=== PATIENT | female | born 1990 | race American Indian/Alaskan Native ===

== ENCOUNTER 2016-09-10 14:27 | Emergency (ER) | payer SELFPAY ==
[2016-09-10 15:24] LABS: Basophils % (Auto) 1.1 % (0.0-1.8); Eosinophils % (Auto) 0.7 % (0.0-4.3); Hematocrit 38.1 % (30.3-42.9); Hemoglobin 12.7 gm/dl (10.1-14.3); Mean Corpuscular HGB Conc 33 % (30-34); Mean Corpuscular Hemoglobin 32 pg (28-32); Mean Corpuscular Volume 96 fl (79-97); Platelet Count 249 K/mm3 (140-440); Red Blood Count 3.98 M/mm3 (3.65-5.03); Red Cell Distribution Width 12.6 % (13.2-15.2); White Blood Count 5.3 K/mm3 (4.5-11.0)
[2016-09-10 15:27] LABS: Bilirubin,Urine NEG (Negative); Blood,Urine NEG (Negative); Ketones,Urine TR mg/dL (Negative); Leukocyte Esterase,Urine SM (Negative); Mucus,Urine 2+ /HPF; Nitrite,Urine NEG (Negative); Protein,Urine <15 mg/dL mg/dL (Negative)
[2016-09-10 15:40] LABS: Alanine Aminotransferase 7 units/L (7-56); Albumin 4.3 g/dL (3.9-5); Albumin/Globulin Ratio 1.5 %; Alkaline Phosphatase 41 units/L (35-129); Bilirubin,Total 0.9 mg/dL (0.1-1.2); Blood Urea Nitrogen 7 mg/dL (7-17); Calcium 9.3 mg/dL (8.4-10.2); Carbon Dioxide 26 mmol/L (22-30); Glucose 88 mg/dL (65-100); Total Protein 7.2 g/dL (6.3-8.2)
[2016-09-10 15:41] LABS: Anion Gap 16 mmol/L; Chloride 100.9 mmol/L (98-107); Lipase 24 units/L (13-60); Potassium 4.6 mmol/L (3.6-5.0); Sodium 138 mmol/L (137-145)
--- NOTE | 2016-09-10 21:45 | Emergency Department Report ---
ED Abdominal Pain HPI - General Chief Complaint: Abdominal Pain Stated Complaint: CRAMPING/NAUSEA Time Seen by Provider: 09/10/16 21:28 Source: patient Mode of arrival: Ambulatory Limitations: No Limitations - History of Present Illness Initial Comments: This is a pleasant 25-year-old female who reports essentially a one-month history of loose stools. She denies him being watery. She states that they continue to be loose however. She occasionally has some crampy lower abdominal pains associated with this as well. She reports increased fatigue. She reports some breast tenderness as well. She honestly thought she was . She states she took 3 tests at home over the past month they've all been negative. The last test was 2 weeks ago. She reports irregular menses in general. She's had 2 prior pregnancies with vaginal deliveries with both. She denies any vaginal discharge or bleeding at this time. She denies any dysuria. She reports normal appetite. - Related Data Previous Rx's Medication Instructions Recorded Last Taken Type Ondansetron [Zofran] 4 mg PO Q8HR PRN #10 tablet 09/20/14 Unknown Rx traMADol [Ultram 50 MG tab] 50 mg PO Q6HR PRN #7 tablet 09/20/14 Unknown Rx Pnv #19/Iron Ps&Heme/Folic/Dha 1 each PO DAILY #30 capsule 09/10/16 Unknown Rx [[employer]-Heme One Softgel] Allergies Allergy/AdvReac Type Severity Reaction Status Date / Time No Known Allergies Allergy Verified 07/21/13 05:58 ED Review of Systems ROS: Stated complaint: CRAMPING/NAUSEA Other details as noted in HPI Comment: All other systems reviewed and negative Constitutional: other (fatigue). denies: chills, fever Eyes: denies: eye pain, eye discharge, vision change ENT: denies: ear pain, throat pain Respiratory: denies: cough, shortness of breath, wheezing Cardiovascular: denies: chest pain, palpitations Endocrine: no symptoms reported Gastrointestinal: diarrhea. denies: abdominal pain, nausea Genitourinary: denies: urgency, dysuria, discharge Musculoskeletal: denies: back pain, joint swelling, arthralgia Skin: denies: rash, lesions Neurological: denies: headache, weakness, paresthesias Psychiatric: denies: anxiety, depression Hematological/Lymphatic: denies: easy bleeding, easy bruising ED Past Medical Hx - Past Medical History Previous Medical History?: Yes Hx Hypertension: No Hx Congestive Heart Failure: No Hx Diabetes: No Hx Deep Vein Thrombosis: No Hx Renal Disease: No Hx Sickle Cell Disease: No Hx Seizures: No Hx Asthma: No Hx COPD: No Hx HIV: No Additional medical history: Anemic - Surgical History Past Surgical History?: No - Social History Smoking Status: Current Every Day Smoker Substance Use Type: Marijuana - Medications Home Medications: Home Medications Medication Instructions Recorded Confirmed Last Taken Type Ondansetron [Zofran] 4 mg PO Q8HR PRN #10 tablet 09/20/14 Unknown Rx traMADol [Ultram 50 MG tab] 50 mg PO Q6HR PRN #7 tablet 09/20/14 Unknown Rx Pnv #19/Iron Ps&Heme/Folic/Dha 1 each PO DAILY #30 capsule 09/10/16 Unknown Rx [[employer]-Heme One Softgel] ED Physical Exam - General Limitations: No Limitations General appearance: alert, in no apparent distress - Head Head exam: Present: atraumatic, normocephalic - Eye Eye exam: Present: normal appearance, EOMI. Absent: scleral icterus - ENT ENT exam: Present: normal exam, normal orophraynx, mucous membranes moist - Neck Neck exam: Present: normal inspection, full ROM. Absent: tenderness, lymphadenopathy - Respiratory Respiratory exam: Present: normal lung sounds bilaterally. Absent: respiratory distress, wheezes, rales - Cardiovascular Cardiovascular Exam: Present: regular rate, normal rhythm. Absent: systolic murmur, diastolic murmur, rubs, gallop - GI/Abdominal GI/Abdominal exam: Present: soft, normal bowel sounds. Absent: tenderness, guarding - Extremities Exam Extremities exam: Present: normal inspection, full ROM. Absent: tenderness, calf tenderness - Back Exam Back exam: Present: normal inspection. Absent: tenderness - Neurological Exam Neurological exam: Present: alert, oriented X3 - Psychiatric Psychiatric exam: Present: normal affect, normal mood - Skin Skin exam: Present: warm, dry, intact, normal color. Absent: rash ED Course Vital Signs 09/10/16 14:34 Temperature 98.6 F Pulse Rate 77 Respiratory 18 Rate Blood Pressure 134/81 O2 Sat by Pulse 100 Oximetry - Reevaluation(s) Reevaluation #1: 09/10/16 21:57 Well-appearing here with a normal examination. Abdomen is very benign. There is no tenderness to palpation whatsoever. I did perform bedside ultrasound. I do not appreciate unobservable at this time. This probably could be accomplished with a transvaginal. I don't feel the utility in performing at this time as there is no specific symptoms to cause may concern for ectopic or irregular at this time. Patient is comfortable with this as with this as well. My best estimate is that patient was early on in and her last urine test 2 weeks ago. I will start time 02 weeks prior to that placing her at 4-5 weeks Max on her dates at this time. We'll start her on vitamins. I believe the pain and this may help with the diarrhea. I did suggest as well business to help with the diarrhea. She is otherwise well-appearing here. I did encourage healthy diet. Safe for home. She does have a OB for follow-up. Reevaluation #2: 09/10/16 21:58 Labs and urinalysis are noted. Patient without any symptoms here from urinary standpoint. ED Medical Decision Making - Lab Data Result diagrams: 09/10/16 15:07 09/10/16 15:07 Critical care attestation.: If time is entered above; I have spent that time in minutes in the direct care of this critically ill patient, excluding procedure time. ED Disposition Clinical Impression: Qualifiers: Weeks of gestation: less than 8 weeks Qualified Code(s): Z3A.01 - Less than 8 weeks gestation of Diarrhea Qualifiers: Diarrhea type: unspecified type Qualified Code(s): R19.7 - Diarrhea, unspecified Disposition: DISCHARGED TO HOME OR SELFCARE Is pt being admited?: No Does the pt Need Aspirin: No Condition: Stable Instructions: Acute Diarrhea (ED) Additional Instructions: Consider pepto-bismol for diarrhea. Eat a healthy diet. Avoid fatty foods. Follow with your OB in about a month. Return if worsening pains or concerns. Prescriptions: Pnv #19/Iron Ps&Heme/Folic/Dha [[employer]-Heme One Softgel] 1 each PO DAILY #30 capsule Referrals: PRIMARY CARE, [Primary Care Provider] - 3-5 Days Time of Disposition: 21:49
[2016-09-10 22:12] VITALS: BP 136/70
== END 2016-09-10 22:26 | disposition home or self-care (01) ==
LOC: ED 14:27
DX: O26.891 Other specified pregnancy related conditions, first trimester (principal); R19.7 Diarrhea, unspecified; O99.331 Smoking (tobacco) complicating pregnancy, first trimester; O99.321 Drug use complicating pregnancy, first trimester; F12.10 Cannabis abuse, uncomplicated; Z3A.01 Less than 8 weeks gestation of pregnancy
CPT/HCPCS: 36415; 80053; 81001; 81025; 83690; 85025

== ENCOUNTER 2016-09-14 11:15 | Emergency (ER) | payer SELFPAY ==
[2016-09-14 12:31] LABS: Hematocrit 39.1 % (30.3-42.9); Hemoglobin 12.8 gm/dl (10.1-14.3); Mean Corpuscular HGB Conc 33 % (30-34); Mean Corpuscular Hemoglobin 32 pg (28-32); Mean Corpuscular Volume 97 fl (79-97); Platelet Count 237 K/mm3 (140-440); Red Blood Count 4.01 M/mm3 (3.65-5.03); Red Cell Distribution Width 12.5 % (13.2-15.2); White Blood Count 4.8 K/mm3 (4.5-11.0)
[2016-09-14 14:20] LABS: Basophils % (Manual) 0 % (0.0-1.8); Blastocytes % (Manual) 0 %; Diff Status Complete; Eosinophils % (Manual) 0 % (0.0-4.3); RBC Morphology Normal
--- NOTE | 2016-09-14 20:44 | Emergency Department Report ---
ED Female HPI - General Chief complaint: Vaginal Bleeding Stated complaint: APPROX 5 WKS PREG/BLEEDING Time Seen by Provider: 09/14/16 20:32 Source: patient Mode of arrival: Ambulatory Limitations: No Limitations - History of Present Illness Initial comments: This is a 25-year-old female who presents today with one-day history of vaginal bleeding which she describes as heavy with some clots. She states is typical for her first day of her menstruation. I did see this patient several days ago. She was noted to have a positive test at that time. She also has several symptoms consistent with early signs of . She indicates that she has been having similar symptoms at home but then had the bleeding today. She denies significant abdominal pain to any degree. She states she has some cramping like she would anticipate for her normal menstrual period. She denies any lateralization of this pain. She denies dysuria she denies diarrhea. Patient does express extreme frustration with having to wait in the waiting room as long as she has as well. Severity scale (0 -10): 3 - Related Data Previous Rx's Medication Instructions Recorded Last Taken Type Ondansetron [Zofran] 4 mg PO Q8HR PRN #10 tablet 09/20/14 Unknown Rx traMADol [Ultram 50 MG tab] 50 mg PO Q6HR PRN #7 tablet 09/20/14 Unknown Rx Pnv #19/Iron Ps&Heme/Folic/Dha 1 each PO DAILY #30 capsule 09/10/16 Unknown Rx [[employer]-Heme One Softgel] Allergies Allergy/AdvReac Type Severity Reaction Status Date / Time No Known Allergies Allergy Verified 07/21/13 05:58 ED Review of Systems ROS: Stated complaint: APPROX 5 WKS PREG/BLEEDING Other details as noted in HPI Comment: All other systems reviewed and negative Constitutional: denies: chills, fever Eyes: denies: eye pain, eye discharge, vision change ENT: denies: ear pain, throat pain Respiratory: denies: cough, shortness of breath, wheezing Cardiovascular: denies: chest pain, palpitations Endocrine: no symptoms reported Gastrointestinal: denies: abdominal pain, nausea, diarrhea Genitourinary: other (vaginal bleeding.). denies: urgency, dysuria, discharge Musculoskeletal: denies: back pain, joint swelling, arthralgia Skin: denies: rash, lesions Neurological: denies: headache, weakness, paresthesias Psychiatric: denies: anxiety, depression Hematological/Lymphatic: denies: easy bleeding, easy bruising ED Past Medical Hx - Past Medical History Hx Hypertension: No Hx Congestive Heart Failure: No Hx Diabetes: No Hx Deep Vein Thrombosis: No Hx Renal Disease: No Hx Sickle Cell Disease: No Hx Seizures: No Hx Asthma: No Hx COPD: No Hx HIV: No Additional medical history: Anemic - Social History Smoking Status: Never Smoker Substance Use Type: Marijuana - Medications Home Medications: Home Medications Medication Instructions Recorded Confirmed Last Taken Type Ondansetron [Zofran] 4 mg PO Q8HR PRN #10 tablet 09/20/14 Unknown Rx traMADol [Ultram 50 MG tab] 50 mg PO Q6HR PRN #7 tablet 09/20/14 Unknown Rx Pnv #19/Iron Ps&Heme/Folic/Dha 1 each PO DAILY #30 capsule 09/10/16 Unknown Rx [[employer]ist-Heme One Softgel] ED Physical Exam - General Limitations: No Limitations General appearance: alert, in no apparent distress - Head Head exam: Present: atraumatic, normocephalic - Eye Eye exam: Present: normal appearance, EOMI. Absent: scleral icterus - ENT ENT exam: Present: mucous membranes moist - Neck Neck exam: Present: normal inspection - Respiratory Respiratory exam: Present: normal lung sounds bilaterally. Absent: respiratory distress - Cardiovascular Cardiovascular Exam: Present: regular rate, normal rhythm. Absent: systolic murmur, diastolic murmur, rubs, gallop - GI/Abdominal GI/Abdominal exam: Present: soft, normal bowel sounds. Absent: tenderness, guarding, mass - Extremities Exam Extremities exam: Present: normal inspection. Absent: tenderness, pedal edema, calf tenderness - Back Exam Back exam: Present: normal inspection. Absent: tenderness, CVA tenderness (R), CVA tenderness (L) - Neurological Exam Neurological exam: Present: alert, oriented X3 - Psychiatric Psychiatric exam: Present: normal affect, normal mood - Skin Skin exam: Present: warm, dry, intact, normal color. Absent: rash ED Course Vital Signs 09/14/16 11:20 Temperature 98.3 F Pulse Rate 80 Respiratory 20 Rate Blood Pressure 123/86 O2 Sat by Pulse 100 Oximetry - Reevaluation(s) Reevaluation #1: 09/14/16 21:52 Patient quite emotional here. This is obviously bad news for her. I can understand this. She is also very frustrated with the fact that she's been waiting for 10 hours for her evaluation. I did inform her that she appears to have completed her . Her hormone levels I suspect are trending down. She did have a positive test 4 days ago which would indicate to me that her hormone levels are likely higher that point time. She is O+. Support system at home. I feel she is safe for home at this time. Her abdomen is very soft and unremarkable. ED Medical Decision Making - Lab Data Result diagrams: 09/14/16 12:01 - Radiology Data Radiology results: report reviewed, image reviewed Transvaginal ultrasound with a thickened endometrium no products of conception identified. Adnexa without abnormalities but for right ovary with 3 cm uncomplicated cyst. No free fluid noted. Critical care attestation.: If time is entered above; I have spent that time in minutes in the direct care of this critically ill patient, excluding procedure time. ED Disposition Clinical Impression: Miscarriage Disposition: DISCHARGED TO HOME OR SELFCARE Is pt being admited?: No Does the pt Need Aspirin: No Condition: Stable Additional Instructions: Follow with your OB or return for any concerns. Referrals: PRIMARY CARE, [Primary Care Provider] - 3-5 Days Forms: Work/School Release Form(ED) Time of Disposition: 21:50
--- NOTE | 2016-09-14 21:32 | Ultrasound Report ---
FINAL REPORT EXAM: US OB \T\lt; = 14 WEEKS FETUS HISTORY: vag bleeding pos test COMPARISON: None available. TECHNIQUE: Several real-time grayscale and color Doppler images were obtained. Transabdominal and transvaginal exam. FINDINGS: The uterus measures 9.6 x 5.0 x 6.1 centimeters. Endometrial stripe measures 14 millimeters. No IUP demonstrated. No adnexal masses are demonstrated. The right ovary measures 3.1 x 1.3 x 1.2 centimeters. Left ovary measures 5.2 x 4.3 x 4.1 centimeters. Within the left ovary, there is a 3.2 x 2.6 by 2.6 centimeter unilocular cyst which may reflect corpus luteum. Trace fluid in the pelvis. There is vascular flow to the bilateral ovaries. IMPRESSION: No IUP or adnexal mass is demonstrated. Correlation correlation with serial beta HCGs and followup exam is suggested. 3.2 centimeter unilocular right ovarian cyst which may reflect corpus luteum.
--- NOTE | 2016-09-14 21:33 | Ultrasound Report ---
FINAL REPORT EXAM: US OB TRANSVAGINAL HISTORY: vag bleeding pos test COMPARISON: None available. TECHNIQUE: Several real-time grayscale and color Doppler images were obtained. Transabdominal and transvaginal exam. FINDINGS: The uterus measures 9.6 x 5.0 x 6.1 centimeters. Endometrial stripe measures 14 millimeters. No IUP demonstrated. No adnexal masses are demonstrated. The right ovary measures 3.1 x 1.3 x 1.2 centimeters. Left ovary measures 5.2 x 4.3 x 4.1 centimeters. Within the left ovary, there is a 3.2 x 2.6 by 2.6 centimeter unilocular cyst which may reflect corpus luteum. Trace fluid in the pelvis. There is vascular flow to the bilateral ovaries. IMPRESSION: No IUP or adnexal mass is demonstrated. Findings could reflect near completed miscarriage. Correlation with serial beta HCGs and followup exam is suggested. 3.2 centimeter unilocular right ovarian cyst which may reflect corpus luteum.
[2016-09-14 22:27] VITALS: BP 125/75
== END 2016-09-14 22:00 | disposition home or self-care (01) ==
LOC: ED 11:15
DX: O03.9 Complete or unspecified spontaneous abortion without complication (principal); O99.321 Drug use complicating pregnancy, first trimester; F12.10 Cannabis abuse, uncomplicated; Z3A.01 Less than 8 weeks gestation of pregnancy
CPT/HCPCS: 36415; 76801; 76817; 84702; 85007; 85025; 86850; 86900; 86901

== ENCOUNTER 2016-12-24 09:16 | Emergency (ER) | payer SELFPAY ==
--- NOTE | 2016-12-24 09:28 | Emergency Department Report ---
Chief Complaint: Dyspnea/Respdistress Stated Complaint: BODY PAIN Time Seen by Provider: 12/24/16 09:22 - HPI History of Present Illness: PT states last night, she felt sob. pt states she tried sitting up to see if that would help. PT states states she also developed chest/ back/ and arm pain last night. - ROS Review of Systems: + sleep disruption + sob + body pain + stress from relationship, money problems, and recent move - Exam Physical Exam: PT looks well, non toxic gcs 15 lungs cta gomez - no acute resp distress MSE screening note: Focused history and physical exam performed. Due to findings the following was ordered: labs, ekg, xr ED Disposition for MSE Condition: Stable
[2016-12-24 09:56] LABS: Basophils % (Auto) 1.1 % (0.0-1.8); Eosinophils % (Auto) 1.2 % (0.0-4.3); Hematocrit 38.1 % (30.3-42.9); Mean Corpuscular HGB Conc 34 % (30-34); Mean Corpuscular Hemoglobin 33 pg (28-32); Mean Corpuscular Volume 96 fl (79-97); Platelet Count 243 K/mm3 (140-440); Red Blood Count 3.98 M/mm3 (3.65-5.03); Red Cell Distribution Width 12.3 % (13.2-15.2); White Blood Count 4.2 K/mm3 (4.5-11.0)
[2016-12-24 10:20] LABS: Alanine Aminotransferase 9 units/L (7-56); Albumin 4.5 g/dL (3.9-5); Albumin/Globulin Ratio 1.6 %; Alkaline Phosphatase 36 units/L (35-129); Anion Gap 19 mmol/L; Blood Urea Nitrogen 8 mg/dL (7-17); Calcium 8.9 mg/dL (8.4-10.2); Carbon Dioxide 25 mmol/L (22-30); Chloride 101.4 mmol/L (98-107); Glucose 81 mg/dL (65-100); Potassium 3.1 mmol/L (3.6-5.0); Sodium 142 mmol/L (137-145); Total Protein 7.3 g/dL (6.3-8.2)
--- NOTE | 2016-12-24 11:30 | XRay Report ---
CHEST TWO VIEWS: 12/24/16 10:51 CLINICAL: Shortness of breath. COMPARISON: None FINDINGS: Normal heart and pulmonary vasculature. The lungs are mildly hyperexpanded and clear. The bones and soft tissues are normal. IMPRESSION: Mild pulmonary hyperinflation and otherwise normal.
[2016-12-24 14:31] VITALS: BP 128/88
[2016-12-24] MEDS ORDERED: ALUM-MAG HYDROX-SIMETH 200-200-20MG/5ML PO ONE (16:00)
[2016-12-24] MEDS ORDERED: CARAFATE PO ONE (16:00)
[2016-12-24] MEDS ORDERED: TORADOL IM ONE (16:00)
[2016-12-24] MEDS ORDERED: PEPCID PO ONE (16:00)
--- NOTE | 2016-12-24 16:02 | Emergency Department Report ---
ED General Adult HPI - General Chief complaint: Chest Pain Stated complaint: BODY PAIN Time Seen by Provider: 12/24/16 09:22 Source: patient, RN notes reviewed Mode of arrival: Ambulatory Limitations: No Limitations - History of Present Illness Initial comments: This is a 26-year-old female, previously on. She does not have a primary care doctor currently. She reports that she does not have chronic medical conditions. She does not take control tablets. The patient presents to the ER complaining of chest pain. The chest pain as central, and started at 8:00 PM last night. It did not radiate to the back, arms or neck. There is no vomiting or diaphoresis. The patient reports that she has a "hard time" breathing. There is no recent aspirin use, cocaine use. No recent periods of immobility or surgeries. The patient does not take oral contraceptives. The patient then complains of headache. The headache started at 8:00 in the morning. The headache is not sudden or thunderclap in nature. It did not reach maximal intensity within an hour. It is not the worst headache of her life. The patient's next complaint is of left arm pain. The arm pain is achy. It increases with palpation and range of motion. It decreases with rest. The patient then complains of lower back pain. The back pain is diffuse. It is "all over. It increases with palpation and range of motion. It decreases with rest. The patient denies irritative and obstructive urinary symptoms, she denies saddle anesthesia -: Gradual, days(s), week(s), month(s) Location: head, chest, back, left, upper extremity Severity scale (0 -10): 6 Quality: aching Consistency: intermittent Improves with: medication, rest Worsens with: movement Associated Symptoms: chest pain, headaches, shortness of breath - Related Data Previous Rx's Medication Instructions Recorded Last Taken Type Ondansetron [Zofran] 4 mg PO Q8HR PRN #10 tablet 09/20/14 Unknown Rx traMADol [Ultram 50 MG tab] 50 mg PO Q6HR PRN #7 tablet 09/20/14 Unknown Rx Pnv #19/Iron Ps&Heme/Folic/Dha 1 each PO DAILY #30 capsule 09/10/16 Unknown Rx [Scales Inspector-Heme One Softgel] Allergies Allergy/AdvReac Type Severity Reaction Status Date / Time No Known Allergies Allergy Verified 07/21/13 05:58 ED Review of Systems ROS: Stated complaint: BODY PAIN Other details as noted in HPI Constitutional: weakness. denies: fever, malaise Eyes: denies: eye discharge ENT: denies: epistaxis Respiratory: see HPI Cardiovascular: chest pain Gastrointestinal: denies: vomiting Genitourinary: denies: dysuria Musculoskeletal: back pain, arthralgia, myalgia Skin: denies: lesions Neurological: headache, weakness Psychiatric: anxiety ED Past Medical Hx - Past Medical History Previous Medical History?: No Hx Hypertension: No Hx Congestive Heart Failure: No Hx Diabetes: No Hx Deep Vein Thrombosis: No Hx Renal Disease: No Hx Sickle Cell Disease: No Hx Seizures: No Hx Asthma: No Hx COPD: No Hx HIV: No Additional medical history: Anemic - Surgical History Past Surgical History?: No - Social History Smoking Status: Never Smoker Substance Use Type: None - Medications Home Medications: Home Medications Medication Instructions Recorded Confirmed Last Taken Type Ondansetron [Zofran] 4 mg PO Q8HR PRN #10 tablet 09/20/14 Unknown Rx traMADol [Ultram 50 MG tab] 50 mg PO Q6HR PRN #7 tablet 09/20/14 Unknown Rx Pnv #19/Iron Ps&Heme/Folic/Dha 1 each PO DAILY #30 capsule 09/10/16 Unknown Rx [Scales Inspector-Heme One Softgel] ED Physical Exam - General Limitations: No Limitations General appearance: alert, in no apparent distress - Head Head exam: Present: atraumatic, normocephalic - Eye Eye exam: Present: normal appearance, PERRL, EOMI, other (visual acuity intact to finger counting, color perception, reading at a close distance). Absent: nystagmus - ENT ENT exam: Present: normal exam, normal orophraynx, mucous membranes moist, normal external ear exam - Neck Neck exam: Present: normal inspection, full ROM. Absent: tenderness, meningismus - Respiratory Respiratory exam: Present: normal lung sounds bilaterally. Absent: respiratory distress, wheezes, rales, rhonchi, stridor, chest wall tenderness, accessory muscle use, decreased breath sounds, prolonged expiratory - Cardiovascular Cardiovascular Exam: Present: regular rate, normal rhythm, normal heart sounds. Absent: systolic murmur, diastolic murmur, rubs, gallop - GI/Abdominal GI/Abdominal exam: Present: soft, normal bowel sounds. Absent: distended, tenderness, guarding, rebound, rigid, pulsatile mass - Extremities Exam Extremities exam: Present: normal inspection, full ROM, normal capillary refill. Absent: tenderness, pedal edema, joint swelling, calf tenderness - Back Exam Back exam: Present: normal inspection, full ROM, paraspinal tenderness. Absent : tenderness, CVA tenderness (R), vertebral tenderness - Neurological Exam Neurological exam: Present: alert, oriented X3, normal gait, other (Extraocular movements intact. Tongue midline. No facial droop. Facial sensation intact to light touch in the V1, V2, V3 distribution bilaterally. 5 and 5 strength in 4 extremities.. Sensation is intact to light touch in 4 extremities.). Absent : motor sensory deficit - Psychiatric Psychiatric exam: Present: normal affect, normal mood - Skin Skin exam: Present: warm, dry, intact, normal color. Absent: rash ED Course Vital Signs 12/24/16 12/24/16 12/24/16 09:23 14:30 14:32 Temperature 98.4 F 98.3 F Pulse Rate 87 87 Respiratory 16 18 18 Rate Blood Pressure 129/84 Blood Pressure 128/88 [Right] O2 Sat by Pulse 100 100 100 Oximetry ED Medical Decision Making - Lab Data Result diagrams: 12/24/16 09:40 12/24/16 09:40 Vital Signs 12/24/16 12/24/16 12/24/16 09:23 14:30 14:32 Temperature 98.4 F 98.3 F Pulse Rate 87 87 Respiratory 16 18 18 Rate Blood Pressure 129/84 Blood Pressure 128/88 [Right] O2 Sat by Pulse 100 100 100 Oximetry Lab Results 12/24/16 12/24/16 12/24/16 Range/Units 09:40 09:40 09:40 WBC 4.2 L (4.5-11.0) K/mm3 RBC 3.98 (3.65-5.03) M/mm3 Hgb 13.0 (10.1-14.3) gm/dl Hct 38.1 (30.3-42.9) % MCV 96 (79-97) fl MCH 33 H (28-32) pg MCHC 34 (30-34) % RDW 12.3 L (13.2-15.2) % Plt Count 243 (140-440) K/mm3 Lymph % (Auto) 41.1 H (13.4-35.0) % [place] % (Auto) 5.5 (0.0-7.3) % Eos % (Auto) 1.2 (0.0-4.3) % Baso % (Auto) 1.1 (0.0-1.8) % Lymph # 1.7 (1.2-5.4) K/mm3 [place] # 0.2 (0.0-0.8) K/mm3 Eos # 0.1 (0.0-0.4) K/mm3 Baso # 0.0 (0.0-0.1) K/mm3 Seg Neutrophils % 51.1 (40.0-70.0) % Seg Neutrophils # 2.1 (1.8-7.7) K/mm3 Sodium 142 (137-145) mmol/L Potassium 3.1 L (3.6-5.0) mmol/L Chloride 101.4 (98-107) mmol/L Carbon Dioxide 25 (22-30) mmol/L Anion Gap 19 mmol/L BUN 8 (7-17) mg/dL Creatinine 0.8 (0.7-1.2) mg/dL Estimated GFR > 60 ml/min BUN/Creatinine Ratio 10.00 % Glucose 81 (65-100) mg/dL Calcium 8.9 (8.4-10.2) mg/dL Total Bilirubin 1.20 (0.1-1.2) mg/dL AST 13 (5-40) units/L ALT 9 (7-56) units/L Alkaline Phosphatase 36 (35-129) units/L Total Protein 7.3 (6.3-8.2) g/dL Albumin 4.5 (3.9-5) g/dL Albumin/Globulin Ratio 1.6 % HCG, Qual Negative (Negative) - EKG Data 12/24/16 16:35 EKG #1 demonstrates normal sinus, 81 bpm, normal axis, incomplete right bundle branch block, not morphologically consistent with STEMI, there is no prior for comparison. EKG #2 normal sinus, 72 bpm, normal axis, normal intervals, incomplete right bundle branch block, not morphologically consistent with STEMI. Both EKGs are unchanged from each other. - Radiology Data Radiology results: report reviewed, image reviewed x-ray of the chest is negative for acute disease. Pulmonary hyperinflation is suggested - Medical Decision Making Differential diagnosis: Acute coronary syndrome, costochondritis, pleuritis, pericarditis, myocarditis, pneumonia, anxiety, migraine headache, tension headache, cluster headache, muscular back Assessment and plan: 26-year-old female with multiple complaints. She is afebrile, with reassuring vital signs, has a GCS of 15, with an NIH score of 0. There are no pulmonary embolus or DVT risk factors, she is low risk by well's criteria, and she is perc negative. EKG abnormal, however unchanged 2, patient's low risk by LYLE score, low risk by heart score. The patient is suitable to follow up with an outpatient primary care doctor or pulmonary specialist. Troponin is pending at this time, however given lack of tachycardia, I think pericarditis, myocarditis unlikely. The patient signed out AGAINST MEDICAL ADVICE before her evaluation could be complete. The patient is alert and oriented 3, exhibits decision-making capacity and is free from distracting injury. They make conversation is witnessed by nurse Deloris Davidson. The risks of leaving, including , disability, paralysis or related to the patient. She verbalizes understanding. The patient was counseled that she could return to the ER right away if and when she changed her mind. the patient eloped from the emergency room before I was able to give her discharge paperwork, and outpatient referrals to follow up with. Critical care attestation.: If time is entered above; I have spent that time in minutes in the direct care of this critically ill patient, excluding procedure time. ED Disposition Clinical Impression: Chest pain, Headache, Hypokalemia Disposition: DC-07 LEFT AGAINST MED ADVICE Is pt being admited?: No Does the pt Need Aspirin: No Condition: Undetermined Instructions: Chest Pain (ED) Referrals: PRIMARY CARE, [Primary Care Provider] - 3-5 Days
== END 2016-12-24 16:14 | disposition left against medical advice (07) ==
LOC: ED 09:16
DX: R07.9 Chest pain, unspecified (principal); R51 Headache; M54.5 Low back pain; E87.6 Hypokalemia
CPT/HCPCS: 36415; 71020; 80053; 84703; 85025; 93005; 93010; 99284; J1885

== ENCOUNTER 2017-09-29 08:35 | Emergency (ER) | payer MEDICAID ==
[2017-09-29 09:16] VITALS: BP 112/68
[2017-09-29 10:11] LABS: Hematocrit 37.5 % (30.3-42.9); Hemoglobin 12.9 gm/dl (10.1-14.3); Mean Corpuscular HGB Conc 34 % (30-34); Mean Corpuscular Hemoglobin 33 pg (28-32); Mean Corpuscular Volume 97 fl (79-97); Platelet Count 239 K/mm3 (140-440); Red Blood Count 3.85 M/mm3 (3.65-5.03); Red Cell Distribution Width 12.4 % (13.2-15.2)
--- NOTE | 2017-09-29 11:26 | Emergency Department Report ---
Blank Doc - Documentation Documentation: Patient is 26 years old female 4 para 2 with one miscarriage. Patient presented to the ER complaining OF vaginal bleeding for the last 2 days. Patient also stated she had mild lower abdominal pain. OB ultrasound ordered. Patient will need further evaluation.
--- NOTE | 2017-09-29 11:48 | Emergency Department Report ---
HPI - General Chief Complaint: Vaginal Bleeding Time Seen by Provider: 09/29/17 11:22 - HPI HPI: Patient is a 26-year-old with a history of spontaneous miscarriage last year who presents to ED complaining of vaginal bleeding and cramping 3 days. Patient states vaginal bleeding started Friday like he has got in mildly heavier since then. Patient states she's been this outside [employer] once for a confirmed test. She states her last menstrual period was July 29 something and cannot recall. She denies fever,chills nausea or vomiting, abdominal pain. ED Past Medical Hx - Past Medical History Hx Hypertension: No Hx Congestive Heart Failure: No Hx Diabetes: No Hx Deep Vein Thrombosis: No Hx Renal Disease: No Hx Sickle Cell Disease: No Hx Seizures: No Hx Asthma: No Hx COPD: No Hx HIV: No Additional medical history: Anemic - Surgical History Past Surgical History?: No - Social History Smoking Status: Never Smoker - Medications Home Medications: Home Medications Medication Instructions Recorded Confirmed Last Taken Type Ondansetron [Zofran] 4 mg PO Q8HR PRN #10 tablet 09/20/14 Unknown Rx traMADol [Ultram 50 MG tab] 50 mg PO Q6HR PRN #7 tablet 09/20/14 Unknown Rx Pnv 19/Iron Ps,Heme/Folic/Dha 1 each PO DAILY #30 capsule 09/10/16 Unknown Rx [Shop Laborer-Heme One Softgel] Acetaminophen [Tylenol Extra 500 mg PO TID #30 tablet 09/29/17 Unknown Rx Strength] ED Review of Systems ROS: Stated complaint: VAGINAL BLEEDING/ Other details as noted in HPI Constitutional: denies: chills, fever Eyes: denies: eye pain, eye discharge, vision change ENT: denies: ear pain, throat pain Respiratory: denies: cough, shortness of breath, wheezing Cardiovascular: denies: chest pain, palpitations Endocrine: no symptoms reported Gastrointestinal: denies: abdominal pain, nausea, diarrhea Genitourinary: denies: urgency, dysuria, discharge Musculoskeletal: denies: back pain, joint swelling, arthralgia Skin: denies: rash, lesions Neurological: denies: headache, weakness, paresthesias Psychiatric: denies: anxiety, depression Hematological/Lymphatic: denies: easy bleeding, easy bruising Physical Exam - Physical Exam Vital Signs: Vital Signs 09/29/17 09:11 Temperature 98 F Pulse Rate 86 Respiratory 16 Rate Blood Pressure 112/68 O2 Sat by Pulse 99 Oximetry Physical Exam: GENERAL: Alert and oriented x3, no apparent distress, Normal Gait, atraumatic. HEAD: Head is normocephalic and a-traumatic. LUNGS: Symetrical with respiration, No wheezing, no rales or crackles, CTAB. HEART: S1, S2 present, regular rate and rhythm without murmur, no rubs, no gallops. Non tender to palpation ABDOMEN: No organomegaly was noted,Positive bowel sounds, soft, and non- distended. . Nontender to palpation on all Quadrants, NO CVA tenderness. SKIN: Warm and dry, No lesions, No ulceration or induration present. ED Course Vital Signs 09/29/17 09:11 Temperature 98 F Pulse Rate 86 Respiratory 16 Rate Blood Pressure 112/68 O2 Sat by Pulse 99 Oximetry ED Medical Decision Making - Lab Data Result diagrams: 09/29/17 09:50 - Radiology Data Radiology results: report reviewed, image reviewed FINDINGS: Uterus: The uterus is anteverted. The uterus measures 10 x 6 x 7 cm. No uterine mass is appreciated. Normal cervix. Endometrium: The endometrium measures up to 2.9 cm. There is a well-defined cyst within the endometrial canal measuring up to 14 mm in diameter. If this is a gestational sac, it correlates with a 6 week, 2 day . No clear pole, yolk sac or heart activity is demonstrated within this cyst. Right ovary: 3.0 x 1.6 x 3.9 cm. No focal abnormality. Left ovary: 3.6 x 1.8 x 2.9 cm. A 2.2 cm complex area is identified in the left ovary which probably represents a corpus luteum cyst. No obvious ectopic. No pelvic fluid or mass is identified. Normal color doppler interrogation. IMPRESSION: There appears to be an intrauterine gestational sac as outlined above. No pole, yolk sac or cardiac activity is identified at this time. This is concerning for a blighted ovum. Please note an ectopic is not entirely excluded at this time. Close interval followup is recommended. - Medical Decision Making 26-year-old female presents to ED with threatened ED course: Pt received ultra sound, CBC, urinalysis, test and quantitative in the ED All labs [place] [id number] Patient states that bleeding is mild Patient is followed by an [employer] [facility] out of [place] Patient states she has an appointment on Friday Ultrasound shows [id number] sac or pole or heart rate. See reported above Based on the patient's last menstrual period. She should be about 8 weeks in 3 days. Based on overly elevated quantitative with no intrauterine seen discussed the molar /blighted ovum I discussed this findings with the patient and discussed the patient she will need to keep her appointment for OB on Friday for quantitative level as well as a repeat ultrasound in 1 week. Vital signs normalized patient is in no acute distress. I discussed with the patient if follow-up with her [employer]. I discussed all labs and ultrasound findings with the patient. I discussed with the patient that he if bleeding worsens or new symptoms develop to return to ED immediately Critical care attestation.: If time is entered above; I have spent that time in minutes in the direct care of this critically ill patient, excluding procedure time. ED Disposition Clinical Impression: Threatened , Blighted ovum Disposition: TO HOME OR SELFCARE Is pt being admited?: No Does the pt Need Aspirin: No Condition: Stable Instructions: Threatened Miscarriage (ED), (ED), Ectopic ( ED) Additional Instructions: Make sure to follow up with the primary care physician as discussed. Take all your medications as you've been prescribed. If you have any worsening symptoms or develop new symptoms please return to ED immediately. Prescriptions: Acetaminophen [Tylenol Extra Strength] 500 mg PO TID #30 tablet Referrals: PRATT RAJESH MAYNARD [Other] - 3-5 Days Forms: Work/School Release Form(ED) Time of Disposition: 13:13
--- NOTE | 2017-09-29 12:55 | Ultrasound Report ---
ULTRASOUND OB LESS THAN 14 WEEKS FETUS ULTRASOUND OB TRANSVAGINAL HISTORY: Bleeding and cramping during . COMPARISON: None. TECHNIQUE: Transabdominal and transvaginal ultrasound with color doppler interrogation. FINDINGS: Uterus: The uterus is anteverted. The uterus measures 10 x 6 x 7 cm. No uterine mass is appreciated. Normal cervix. Endometrium: The endometrium measures up to 2.9 cm. There is a well-defined cyst within the endometrial canal measuring up to 14 mm in diameter. If this is a gestational sac, it correlates with a 6 week, 2 day . No clear pole, yolk sac or heart activity is demonstrated within this cyst. Right ovary: 3.0 x 1.6 x 3.9 cm. No focal abnormality. Left ovary: 3.6 x 1.8 x 2.9 cm. A 2.2 cm complex area is identified in the left ovary which probably represents a corpus luteum cyst. No obvious ectopic. No pelvic fluid or mass is identified. Normal color doppler interrogation. IMPRESSION: There appears to be an intrauterine gestational sac as outlined above. No pole, yolk sac or cardiac activity is identified at this time. This is concerning for a blighted ovum. Please note an ectopic is not entirely excluded at this time. Close interval followup is recommended.
== END 2017-09-29 13:34 | disposition home or self-care (01) ==
LOC: ED 08:35
DX: O20.0 Threatened abortion (principal); Z3A.01 Less than 8 weeks gestation of pregnancy
CPT/HCPCS: 36415; 76801; 76817; 84702; 85027; 86900; 86901; 99284

== ENCOUNTER 2017-10-24 06:13 | Day surgery (SDC) | payer MEDICAID ==
[~2017-10-24 06:13] MED LIST: LACTATED RINGERS 1,000 ML IV SCH; VERSED IV NR
[2017-10-24] MEDS ORDERED: NACL BACTERIOSTATIC INFILTRATI ONE (06:50)
--- NOTE | 2017-10-24 07:10 | Short Stay Summary ---
Short Stay Documentation Date of service: 10/24/17 Narrative H&P: Pt is a 26yo BF LMP 08/02/17 who presents for a D&C due to a missed . She had an Ob u/s 10/07/17 that showed an IUFD @ 8 weeks, and has been bleeding on and off for several days. - History Principal diagnosis: Incomplete H&P: obtained from office Past Medical History: No medical history Past Surgical History: No surgical history Social history: no significant social history, single - Allergies and Medications Current Medications: Allergies No Known Allergies Allergy (Verified 07/21/13 05:58) Home Medications Medication Instructions Recorded Confirmed Last Taken Type Ondansetron [Zofran] 4 mg PO Q8HR PRN #10 tablet 09/20/14 Unknown Rx traMADol [Ultram 50 MG tab] 50 mg PO Q6HR PRN #7 tablet 09/20/14 Unknown Rx Pnv 19/Iron Ps,Heme/Folic/Dha 1 each PO DAILY #30 capsule 09/10/16 Unknown Rx [Fire [employer] Worker-Heme One Softgel] Acetaminophen [Tylenol Extra 500 mg PO TID #30 tablet 09/29/17 Unknown Rx Strength] Active Medications Lactated Ringer's (Lactated Ringers) 1,000 mls @ 100 mls/hr IV DIRECT CARYN Midazolam HCl (Versed) 2 mg IV PREOP NR Stop: 10/24/17 23:59 - Physical exam General appearance: no acute distress Integumentary: no rash HEENT: Atraumatic Lungs: Clear to auscultation Breasts: deferred Heart: Regular rate Gastrointestinal: normal Female Genitourinary: deferred Rectal Exam: deferred Extremities: no ischemia, No edema Neurological: Normal gait, Normal speech - Brief post op/procedure progress note Date of procedure: 10/24/17 Pre-op diagnosis: 1. IUFD 2. Missed Post-op diagnosis: same Procedure: D&C Anesthesia: MAC Findings: An 8-10 weeks size uterus with moderate amounts of POC. Surgeon: KEVIN MÉNDEZ Estimated blood loss: 50-100ml Pathology: list (POC) Specimen disposition: to lab Condition: stable - Hospital course Hospital course: Unremarkable. - Disposition Condition at discharge: Good Disposition: DC- TO HOME OR SELFCARE - Discharge Diagnoses (1) Missed with demise before 20 completed weeks of gestation Status: Resolved Short Stay Discharge Plan Activity: no restrictions Diet: regular Follow up with: PETROS AMAYA MD, PHD [Primary Care Provider] - 7 Days KEVIN MÉNDEZ MD [Staff Physician] - 14 Days Prescriptions: Doxycycline [Vibramycin CAP] 100 mg PO Q12HR #14 capsule Ibuprofen [Motrin] 800 mg PO Q8HR PRN #30 tablet PRN Reason: Pain, Moderate (4-6) Methylergonovine [Methergine] 0.2 mg PO Q8HR #6 tablet
[2017-10-24] MEDS ORDERED: DIPRIVAN 10 MG/ML IV ONE (07:13)
[2017-10-24] MEDS ORDERED: SUBLIMAZE ONE (07:13)
[2017-10-24] MEDS ORDERED: DILAUDID IV PRN (07:28)
[2017-10-24] MEDS ORDERED: PERCOCET 5/325 PO PRN (07:28)
[2017-10-24] MEDS ORDERED: TORADOL IV PRN (07:28)
[2017-10-24] MEDS ORDERED: ZOFRAN IV PRN (07:28)
[2017-10-24 07:36] LABS: Basophils # (Auto) 0.1 K/mm3 (0.0-0.1); Basophils % (Auto) 1.1 % (0.0-1.8); Eosinophils # (Auto) 0.1 K/mm3 (0.0-0.4); Eosinophils % (Auto) 1.4 % (0.0-4.3); Hemoglobin 12.2 gm/dl (10.1-14.3); Lymphocytes # (Auto) 2.2 K/mm3 (1.2-5.4); Lymphocytes % (Auto) 35.8 % (13.4-35.0); Mean Corpuscular HGB Conc 33 % (30-34); Mean Corpuscular Hemoglobin 32 pg (28-32); Mean Corpuscular Volume 98 fl (79-97); Monocytes # (Auto) 0.3 K/mm3 (0.0-0.8); Platelet Count 252 K/mm3 (140-440); Red Blood Count 3.77 M/mm3 (3.65-5.03); Red Cell Distribution Width 11.9 % (13.2-15.2)
--- NOTE | 2017-10-24 07:39 | Anesthesia Consultation ---
Anesthesia Consult and Med Hx Date of service: 10/24/17 - Airway Anesthetic Teeth Evaluation: Good ROM Head & Neck: Adequate Mental/Hyoid Distance: Adequate Mallampati Class: Class I Intubation Access Assessment: Good - Pulmonary Exam CTA: Yes - Cardiac Exam Cardiac Exam: RRR - Pre-Operative Health Status ASA Pre-Surgery Classification: ASA1 Proposed Anesthetic Plan: General - Pulmonary Hx Smoking: No Hx Asthma: No COPD: No Hx Pneumonia: No Hx Sleep Apnea: No - Cardiovascular System Hx Hypertension: No - Central Nervous System Hx Seizures: No Hx Psychiatric Problems: No - Endocrine Hx Renal Disease: No Hx End Stage Renal Disease: No Hx Hypothyroidism: No Hx Hyperthyroidism: No - Hematic Hx Anemia: No Hx Sickle Cell Disease: No - Other Systems Hx Alcohol Use: No Hx Substance Use: No Hx Cancer: No
--- NOTE | 2017-10-24 07:40 | Anesthesia Day of Surgery ---
Anesthesia Day of Surgery - Day of Surgery Patient Examined: Yes Patient H&P Reviewed: Yes Patient is NPO: Yes
[2017-10-24] MEDS ORDERED: ANCEF/STERILE WATER 2 GM/20 ML 2 GM/20 ML SYRINGE IV NR (08:00)
--- NOTE | 2017-10-24 08:20 | Operative Report ---
Operative Report Operative Report: PREOPERATIVE DIAGNOSIS: 1. Intrauterine demise 2. Missed POSTOPERATIVE DIAGNOSIS: Same OPERATIVE PROCEDURE: Dilatation and curettage. SURGEON: Dion Cardoso MD ANESTHESIA: Gen. mask ANESTHESIOLOGIST: Dr. Purvis ESTIMATED BLOOD LOSS: 50 mL's FINDINGS: An 8-10 days to 10 week size uterus with moderate amounts of products of conception COMPLICATIONS: None COUNTS: Correct x3. PROCEDURE: After the patient was correctly identified, and after general anesthesia was administered, the patient was prepped and draped in the usual sterile fashion and placed in dorsal lithotomy position. First, the bladder was emptied using a straight catheter. Next, a speculum was placed in the vaginal vault and the anterior lip of the cervix was grasped using a single- tooth tenaculum. The uterus was sounded to 10 cm. The cervical os was sequentially dilated, and a 10 mm vaccurette was used to suction blood and products of conception from the uterine cavity. After all the products of conception were removed, the procedure was considered complete. All instruments were removed from the vagina. The patient tolerated the procedure well and was transferred to the recovery room in stable condition.
[2017-10-24] MEDS ORDERED: DECADRON ONE (08:32)
[2017-10-24] MEDS ORDERED: XYLOCAINE MPF 2% ONE (08:32)
--- NOTE | 2017-10-24 08:42 | Post Anesthesia Evaluation ---
- Post Anesthesia Evaluation Patient Participated: Yes Airway Patent: Yes Stable Respiratory Function: Yes Nausea/Vomiting: No Temp > 96.8F: Yes Pain Manageable: Yes Adequeate Hydration: Yes Anesthesia Complications: No Block Receding Appropriately: Not Applicable Patient on Ventilator: No
[2017-10-24 10:55] VITALS: BP 110/72
== END 2017-10-24 09:45 | disposition home or self-care (01) ==
LOC: OR 06:13
PROVIDERS: ATTEND Obstetrics & Gynecology
DX: O02.1 Missed abortion (principal); Z3A.08 8 weeks gestation of pregnancy
CPT/HCPCS: 36415; 59820; 85025; 86900; 86901; 88305; J0690; J1100; J2250; J2704; J3010; J7120

== ENCOUNTER 2017-12-07 12:34 | Emergency (ER) | payer MEDICAID, OTHER ==
[2017-12-07 12:40] VITALS: BP 120/81
[2017-12-07] MEDS ORDERED: FUL-GLO OP ONE (12:52)
--- NOTE | 2017-12-07 12:53 | Emergency Department Report ---
Eye Injury/Foreign Body - HPI Eye Location: Left Severity: Mild Tetanus Status: Not up to Date Eye Symptoms: Eye Pain: Yes, Blurred Vision: No, Eye Redness: Yes, Grinding/ Hammering Metal: No, Used Eye Protection: No, Contact Lens Use: No, Recalls Injury: No Other History: 27-year-old female past medical history none presents with complaint of 2 days of irritation to left eye. Patient states she wears contact lenses as she is nearsighted. Denies any direct trauma to left eye. Denies any fever or chills or cough. States her eye has had yellow crusting on edges that she notices when she wakes up and has been tearing consistently for at least 2 days. Denies foreign body sensation. Primarily complaining of left eye itching and discharge. Tetanus vaccine update. States that she removed her contact lenses when she first noticed irritation. States that her contact lenses are not brand-new. ED Review of Systems ROS: Stated complaint: EYE INFECTION Other details as noted in HPI Constitutional: denies: chills, fever Eyes: eye pain. denies: eye discharge, vision change ENT: denies: ear pain, throat pain Respiratory: denies: cough, shortness of breath, wheezing Cardiovascular: denies: chest pain, palpitations Endocrine: no symptoms reported Gastrointestinal: denies: abdominal pain, nausea, diarrhea Genitourinary: denies: urgency, dysuria, discharge Musculoskeletal: denies: back pain, joint swelling, arthralgia Skin: denies: rash, lesions Neurological: denies: headache, weakness, paresthesias Psychiatric: denies: anxiety, depression Hematological/Lymphatic: denies: easy bleeding, easy bruising ED Past Medical Hx - Past Medical History Hx Hypertension: No Hx Congestive Heart Failure: No Hx Diabetes: No Hx Deep Vein Thrombosis: No Hx Renal Disease: No Hx Sickle Cell Disease: No Hx Seizures: No Hx Asthma: No Hx COPD: No Hx HIV: No Additional medical history: Anemic - Surgical History Additional Surgical History: D&C 2017 - Social History Smoking Status: Never Smoker Substance Use Type: Alcohol - Medications Home Medications: Home Medications Medication Instructions Recorded Confirmed Last Taken Type Doxycycline [Vibramycin CAP] 100 mg PO Q12HR #14 capsule 10/24/17 Unknown Rx Ibuprofen [Motrin] 800 mg PO Q8HR PRN #30 tablet 10/24/17 Unknown Rx Methylergonovine [Methergine] 0.2 mg PO Q8HR #6 tablet 10/24/17 Unknown Rx Glycerin/Propylene Glycol 1 drop OP Q6H PRN #1 drops 12/07/17 Unknown Rx [Artificial Tears Drops] Ibuprofen [Motrin] 600 mg PO Q8H PRN #25 tablet 12/07/17 Unknown Rx Tobramycin 0.3% [Tobrex] 1 drop OS Q4H #1 bottle 12/07/17 Unknown Rx Eye Injury Exam - Exam General: Vital signs noted. No distress. Alert and acting appropriately. - Visual Acuity Left Vision Acuity Degree: 20/30 Eye Exam: Left Injection, Both EOMI, Neither Chemosis, Neither Abnormal Pupil, Neither Fluorescein Uptake (no floor seen uptake on exam no corneal abrasion seen on exam) ED Course Vital Signs 12/07/17 12:36 Temperature 98.5 F Pulse Rate 86 Respiratory 18 Rate Blood Pressure 120/81 O2 Sat by Pulse 100 Oximetry ED Medical Decision Making - Medical Decision Making A/P: left conjunctivitis 1-tobramycin drops left eye. 2-Motrin when necessary, artificial tears left eye 3-overall visual acuity is 20/40 4-ophthalmology f/u Critical care attestation.: If time is entered above; I have spent that time in minutes in the direct care of this critically ill patient, excluding procedure time. ED Disposition Clinical Impression: Acute conjunctivitis, left eye Qualifiers: Acute conjunctivitis type: unspecified Qualified Code(s): H10.32 - Unspecified acute conjunctivitis, left eye Disposition: TO HOME OR SELFCARE Is pt being admited?: No Does the pt Need Aspirin: No Condition: Stable Instructions: Conjunctivitis (ED) Prescriptions: Glycerin/Propylene Glycol [Artificial Tears Drops] 1 drop OP Q6H PRN #1 drops PRN Reason: Dry Eye(S) Ibuprofen [Motrin] 600 mg PO Q8H PRN #25 tablet PRN Reason: Pain Tobramycin 0.3% [Tobrex] 1 drop OS Q4H #1 bottle Referrals: NICOLE GARRISON MD [Staff Physician] - 3-5 Days SARA PENN MD [Staff Physician] - 3-5 Days Forms: Work/School Release Form(ED) Time of Disposition: 13:11
== END 2017-12-07 13:32 | disposition home or self-care (01) ==
LOC: ED 12:34
DX: H10.32 Unspecified acute conjunctivitis, left eye (principal)
CPT/HCPCS: 99282

== ENCOUNTER 2017-12-15 23:47 | Emergency (ER) | payer OTHER ==
[2017-12-16 00:22] VITALS: BP 131/79
--- NOTE | 2017-12-16 02:22 | Emergency Department Report ---
ED Eye Problem HPI - General Chief complaint: Eye Problems Stated complaint: L EYE PAIN Time Seen by Provider: 12/16/17 02:18 Source: patient Mode of arrival: Ambulatory Limitations: No Limitations - History of Present Illness Initial comments: 27-year-old -Wel[place] female presents back to the emergency room stating that her eye has not improved. Patient was seen here about a week ago and was diagnosed with acute conjunctivitis and was placed on tobramycin eyedrops. Patient reports that she's been using the drops with no relief. Patient reports that she got [id number] eyedrops which is helped with the gritty feeling but the redness is still present. Patient reports that she wakes up and her eyes are matted with yellow goopy discharge. Patient denies any change of vision and she denies any pain. Patient denies any past medical history. chief complaint: eye redness -: week(s) (1) Location: left eye Eye Symptoms: redness, discharge Consistency: constant Associated Symptoms: none Treatments Prior to Arrival: other (tobramycin) - Related Data Previous Rx's Medication Instructions Recorded Last Taken Type Doxycycline [Vibramycin CAP] 100 mg PO Q12HR #14 capsule 10/24/17 Unknown Rx Ibuprofen [Motrin] 800 mg PO Q8HR PRN #30 tablet 10/24/17 Unknown Rx Methylergonovine [Methergine] 0.2 mg PO Q8HR #6 tablet 10/24/17 Unknown Rx Glycerin/Propylene Glycol 1 drop OP Q6H PRN #1 drops 12/07/17 Unknown Rx [Artificial Tears Drops] Ibuprofen [Motrin] 600 mg PO Q8H PRN #25 tablet 12/07/17 Unknown Rx Tobramycin 0.3% [Tobrex] 1 drop OS Q4H #1 bottle 12/07/17 Unknown Rx Amoxicillin [Amoxicillin TAB] 875 mg PO BID 10 Days #20 tablet 12/16/17 Unknown Rx Allergies Allergy/AdvReac Type Severity Reaction Status Date / Time No Known Allergies Allergy Verified 07/21/13 05:58 ED Review of Systems ROS: Stated complaint: L EYE PAIN Other details as noted in HPI Eyes: eye discharge ED Past Medical Hx - Past Medical History Previous Medical History?: No Hx Hypertension: No Hx Congestive Heart Failure: No Hx Diabetes: No Hx Deep Vein Thrombosis: No Hx Renal Disease: No Hx Sickle Cell Disease: No Hx Seizures: No Hx Asthma: No Hx COPD: No Hx HIV: No Additional medical history: Anemic - Surgical History Past Surgical History?: Yes Additional Surgical History: D&C 2017 - Social History Smoking Status: Current Some Day Smoker Substance Use Type: Alcohol, Marijuana - Medications Home Medications: Home Medications Medication Instructions Recorded Confirmed Last Taken Type Doxycycline [Vibramycin CAP] 100 mg PO Q12HR #14 capsule 10/24/17 Unknown Rx Ibuprofen [Motrin] 800 mg PO Q8HR PRN #30 tablet 10/24/17 Unknown Rx Methylergonovine [Methergine] 0.2 mg PO Q8HR #6 tablet 10/24/17 Unknown Rx Glycerin/Propylene Glycol 1 drop OP Q6H PRN #1 drops 12/07/17 Unknown Rx [Artificial Tears Drops] Ibuprofen [Motrin] 600 mg PO Q8H PRN #25 tablet 12/07/17 Unknown Rx Tobramycin 0.3% [Tobrex] 1 drop OS Q4H #1 bottle 12/07/17 Unknown Rx Amoxicillin [Amoxicillin TAB] 875 mg PO BID 10 Days #20 tablet 12/16/17 Unknown Rx ED Physical Exam - General Limitations: No Limitations - Eye Eye exam: Present: EOMI, scleral icterus, conjunctival injection. Absent: nystagmus, periorbital swelling, periorbital tenderness - Neck Neck exam: Present: full ROM. Absent: lymphadenopathy - Neurological Exam Neurological exam: Present: alert, oriented X3 - Psychiatric Psychiatric exam: Present: normal affect, normal mood ED Course Vital Signs 12/15/17 12/16/17 23:49 00:19 Temperature 98.8 F 98.8 F Pulse Rate 86 75 Respiratory 18 18 Rate Blood Pressure 131/79 131/79 O2 Sat by Pulse 98 98 Oximetry ED Medical Decision Making - Medical Decision Making Patient has been evaluated by this provider fast track. Discussed the patient placed on oral antibiotics such as amoxicillin 875 mg twice a day for 10 days. I discussed the patient impaired that she needs to follow up with an horse riding coach or instructor. Patient verbalizes understanding Critical care attestation.: If time is entered above; I have spent that time in minutes in the direct care of this critically ill patient, excluding procedure time. ED Disposition Clinical Impression: Acute conjunctivitis, left eye Qualifiers: Acute conjunctivitis type: bacterial Qualified Code(s): H10.32 - Unspecified acute conjunctivitis, left eye Disposition: DC-01 TO HOME OR SELFCARE Is pt being admited?: No Does the pt Need Aspirin: No Condition: Stable Instructions: Conjunctivitis (ED) Additional Instructions: Please complete antibiotics as prescribed. It is very important for you to follow up with one of the ophthalmologists I have listed several below. Give them a call and let them know you were seen in the emergency room and that he had to be placed on oral antibiotics. Prescriptions: Amoxicillin [Amoxicillin TAB] 875 mg PO BID 10 Days #20 tablet Referrals: PRIMARY CAREMD [Primary Care Provider] - 3-5 Days SARA PENN MD [Staff Physician] - 3-5 Days [facility] [Provider Group] - 3-5 Days [facility], [facility] [Provider Group] - 3-5 Days Forms: Work/School Release Form(ED)
== END 2017-12-16 02:25 | disposition home or self-care (01) ==
LOC: ED 23:47
DX: H10.32 Unspecified acute conjunctivitis, left eye (principal); F17.200 Nicotine dependence, unspecified, uncomplicated; F12.10 Cannabis abuse, uncomplicated
CPT/HCPCS: 99282

== ENCOUNTER 2019-07-19 07:30 | Emergency (ER) | payer MEDICAID, OTHER ==
[2019-07-19 07:37] VITALS: BP 108/77
--- NOTE | 2019-07-19 09:14 | Emergency Department Report ---
Chief Complaint: Sore Throat Stated Complaint: VOICE GONE FOR A WEEK Time Seen by Provider: 07/19/19 09:04 - HPI History of Present Illness: 28 -Citizen Of [place] female presents to the emergency room for hoarseness times 1 week. Patient denies any chills no sore throat no swelling. - Exam Vital Signs: Vital Signs 07/19/19 07:36 Temperature 98.8 F Pulse Rate 87 Respiratory 16 Rate Blood Pressure 108/77 O2 Sat by Pulse 98 Oximetry Alert and oriented 3 no acute distress nontoxic in appearance Oromucosa moist tonsils are non-hypertrophic nonerythematous no exudate Neck no cervical lymph adenopathy MSE screening note: Focused history and physical exam performed. Due to findings the following was ordered: 28 -Citizen Of [place] female presents to the emergency room for hoarseness times 1 week. Patient denies any chills no sore throat no swelling. Recommend [id number] ibuprofen or Tylenol rest her voice keep her voice moist if any further concerns follow-up with ear nose and throat provider. ED Disposition for [facility] Disposition: MED SCREENING EXAM-LEFT Is pt being admited?: No Does the pt Need Aspirin: No Condition: Stable Additional Instructions: Please take ibuprofen fluids and rest her voice. Follow up with her primary care provider or ear nose and throat provider. Referrals: PRIMARY CARE, [Primary Care Provider] - 3-5 Days Forms: Work/School Release Form(ED)
== END 2019-07-19 15:05 | disposition left against medical advice (07) ==
LOC: ED 07:30
DX: R49.0 Dysphonia (principal)
CPT/HCPCS: 99281

== ENCOUNTER 2020-02-18 10:43 | Emergency (ER) | payer SELFPAY ==
[2020-02-18 10:57] VITALS: BP 125/88
[2020-02-18 12:21] LABS: Bilirubin,Urine NEG (Negative); Blood,Urine NEG (Negative); Color,Urine Yellow (Yellow); Mucus,Urine FEW /HPF; Protein,Urine <15 mg/dL mg/dL (Negative); Urobilinogen,Urine < 2.0 mg/dL (<2.0)
[2020-02-18 12:24] LABS: HCG Qualitative,Urine Negative (Negative)
[2020-02-18] MEDS ORDERED: HYOSCYAMINE SUBL 0.125 MG TAB SL ONE (12:34)
[2020-02-18] MEDS ORDERED: ALUM-MAG HYDROXIDE-SIMETHICONE 200-200-20MG/5ML ORAL LIQD 30 ML PO ONE (12:34)
[2020-02-18] MEDS ORDERED: ONDANSETRON 4 MG ODT TAB PO ONE (12:34)
--- NOTE | 2020-02-18 13:46 | Emergency Department Report ---
ED General Adult HPI - General Chief complaint: Abdominal Pain Stated complaint: ABD PAINS 2 DAYS Time Seen by Provider: 02/18/20 11:45 Source: patient Mode of arrival: Ambulatory Limitations: No Limitations - History of Present Illness Initial comments: Patient is a 29-year-old female who presents emergency room with complaints of generalized abdominal cramping that began 2 days ago. She has associated nausea. she states that she did have increased gas and belching. She denies any vomiting, diarrhea, fever, dysuria, vaginal discharge, vaginal bleeding. She states that she has been having normal bowel movements. She denies any past medical history. No allergies to medications. She states that she has an IUD as control. - Related Data Previous Rx's Medication Instructions Recorded Last Taken Type DOXYCYCLINE Hyclate [Vibramycin 100 mg PO Q12HR #14 capsule 10/24/17 Unknown Rx CAP] Ibuprofen [Motrin] 800 mg PO Q8HR PRN #30 tablet 10/24/17 Unknown Rx Methylergonovine [Methergine] 0.2 mg PO Q8HR #6 tablet 10/24/17 Unknown Rx Glycerin/Propylene Glycol 1 drop OP Q6H PRN #1 drops 12/07/17 Unknown Rx [Artificial Tears Drops] Tobramycin 0.3% [Tobrex] 1 drop OS Q4H #1 bottle 12/07/17 Unknown Rx Amoxicillin [Amoxicillin TAB] 875 mg PO BID 10 Days #20 tablet 12/16/17 Unknown Rx Ibuprofen [Motrin 600 MG tab] 600 mg PO Q8H PRN #25 tablet 01/15/18 Unknown Rx Hyoscyamine Subl [Levsin Sl 0.125 0.125 mg SL Q6HR PRN #7 tab 02/18/20 Unknown Rx TAB] Mag Hydrox/Aluminum Hyd/Simeth 10 ml PO Q8HR #1 bottle 02/18/20 Unknown Rx [Mylanta Maximum Strength Liq] Ondansetron [Zofran Odt] 4 mg PO Q8HR PRN #7 tab.rapdis 02/18/20 Unknown Rx Allergies Allergy/AdvReac Type Severity Reaction Status Date / Time No Known Allergies Allergy Verified 02/18/20 10:53 ED Review of Systems ROS: Stated complaint: ABD PAINS 2 DAYS Other details as noted in HPI Comment: All other systems reviewed and negative ED Past Medical Hx - Past Medical History Hx Hypertension: No Hx Congestive Heart Failure: No Hx Diabetes: No Hx Deep Vein Thrombosis: No Hx Renal Disease: No Hx Sickle Cell Disease: No Hx Seizures: No Hx Asthma: No Hx COPD: No Hx HIV: No Additional medical history: Anemic - Surgical History Additional Surgical History: D&C 2017 - Social History Smoking Status: Never Smoker Substance Use Type: None - Medications Home Medications: Home Medications Medication Instructions Recorded Confirmed Last Taken Type DOXYCYCLINE Hyclate [Vibramycin 100 mg PO Q12HR #14 capsule 10/24/17 Unknown Rx CAP] Ibuprofen [Motrin] 800 mg PO Q8HR PRN #30 tablet 10/24/17 Unknown Rx Methylergonovine [Methergine] 0.2 mg PO Q8HR #6 tablet 10/24/17 Unknown Rx Glycerin/Propylene Glycol 1 drop OP Q6H PRN #1 drops 12/07/17 Unknown Rx [Artificial Tears Drops] Tobramycin 0.3% [Tobrex] 1 drop OS Q4H #1 bottle 12/07/17 Unknown Rx Amoxicillin [Amoxicillin TAB] 875 mg PO BID 10 Days #20 tablet 12/16/17 Unknown Rx Ibuprofen [Motrin 600 MG tab] 600 mg PO Q8H PRN #25 tablet 01/15/18 Unknown Rx Hyoscyamine Subl [Levsin Sl 0.125 0.125 mg SL Q6HR PRN #7 tab 02/18/20 Unknown Rx TAB] Mag Hydrox/Aluminum Hyd/Simeth 10 ml PO Q8HR #1 bottle 02/18/20 Unknown Rx [Mylanta Maximum Strength Liq] Ondansetron [Zofran Odt] 4 mg PO Q8HR PRN #7 tab.rapdis 02/18/20 Unknown Rx ED Physical Exam - General Limitations: No Limitations General appearance: alert, in no apparent distress - Head Head exam: Present: atraumatic, normocephalic - Eye Eye exam: Present: normal appearance - ENT ENT exam: Present: mucous membranes moist - Respiratory Respiratory exam: Present: normal lung sounds bilaterally. Absent: respiratory distress, wheezes, rales, rhonchi, stridor, chest wall tenderness, accessory muscle use, decreased breath sounds, prolonged expiratory - Cardiovascular Cardiovascular Exam: Present: regular rate, normal rhythm, normal heart sounds. Absent: systolic murmur, diastolic murmur, rubs, gallop - GI/Abdominal GI/Abdominal exam: Present: soft, normal bowel sounds, other (negative murphys sign, no mcburneys point ttp, negative mercedes turners or cullens sign). Absent: distended, tenderness, guarding, rebound, rigid - Neurological Exam Neurological exam: Present: alert, oriented X3 - Psychiatric Psychiatric exam: Present: normal affect, normal mood - Skin Skin exam: Present: warm, dry, intact ED Course Vital Signs 02/18/20 10:56 Temperature 98.1 F Pulse Rate 78 Respiratory 16 Rate Blood Pressure 125/88 O2 Sat by Pulse 100 Oximetry ED Medical Decision Making - Lab Data Lab Results 02/18/20 Range/Units 11:37 Urine Color Yellow (Yellow) Urine Turbidity Clear (Clear) Urine pH 5.0 (5.0-7.0) Ur Specific Scroggins 1.019 (1.003-1.030) Urine Protein <15 mg/dl (Negative) mg/dL Urine Glucose (UA) Neg (Negative) mg/dL Urine Ketones Neg (Negative) mg/dL Urine Blood Neg (Negative) Urine Nitrite Neg (Negative) Urine Bilirubin Neg (Negative) Urine Urobilinogen < 2.0 (<2.0) mg/dL Ur Leukocyte Esterase Tr (Negative) Urine WBC (Auto) 1.0 (0.0-6.0) /HPF Urine RBC (Auto) 2.0 (0.0-6.0) /HPF U Epithel Cells (Auto) 2.0 (0-13.0) /HPF Urine Mucus Few /HPF Urine HCG, Qual Negative (Negative) - Medical Decision Making Patient is a 29-year-old female who presents emergency room with complaints of generalized abdominal cramping that began 2 days ago. She has associated nausea. she states that she did have increased gas and belching. She denies any vomiting, diarrhea, fever, dysuria, vaginal discharge, vaginal bleeding. She states that she has been having normal bowel movements. She denies any past medical history. No allergies to medications. She states that she has an IUD as control. VSS. On exam no abdominal tenderness palpation, no distention, abdomen is soft nontender, no guarding, no rebound, no rigidity, no peritoneal signs, negative Linda sign, negative McBurney's point tenderness, negative Mercedes Mcgee and Phani sign. UA is within normal limits. Urine is negative. Patient given Zofran and Levsin and symptoms improved. pt has no obstructive signs. symptoms most likely related to gas pain vs. GERD. pt given prescription for levsin, zofran, and mylanta. advised pt please take medication as prescribed. increase your water intake. eat a bland diet. avoid anything sugary or greasy. follow up with a primary care doctor in the next 2 days for reexamination. return to the emergency room immediately for any new or worsening symptoms such as but not limited to worsening abdominal pain, unable to tolerate by mouth intake, constant vomiting/diarrhea, fever, etc. - Differential Diagnosis gas pain, GERD, PUD, gastritis, UTI, pancreatitis, obstruction, Critical care attestation.: If time is entered above; I have spent that time in minutes in the direct care of this critically ill patient, excluding procedure time. ED Disposition Clinical Impression: Abdominal cramping Disposition: DC-01 TO HOME OR SELFCARE Is pt being admited?: No Does the pt Need Aspirin: No Condition: Stable Instructions: Gas and Bloating (ED), Abdominal Pain (ED) Additional Instructions: please take medication as prescribed. increase your water intake. eat a bland diet. avoid anything sugary or greasy. follow up with a primary care doctor in the next 2 days for reexamination. return to the emergency room immediately for any new or worsening symptoms such as but not limited to worsening abdominal pain, unable to tolerate by mouth intake, constant vomiting/diarrhea, fever, etc. Prescriptions: Hyoscyamine Subl [Levsin Sl 0.125 TAB] 0.125 mg SL Q6HR PRN #7 tab PRN Reason: abdominal cramping Mag Hydrox/Aluminum Hyd/Simeth [Mylanta Maximum Strength Liq] 10 ml PO Q8HR #1 bottle Ondansetron [Zofran Odt] 4 mg PO Q8HR PRN #7 tab.rapdis PRN Reason: Nausea And Vomiting Referrals: CHELSEA BARRERA MD [Staff Physician] - 2-3 Days [facility] [Provider Group] - 2-3 Days [facility] [Outside] - 2-3 Days Time of Disposition: 13:53 Print Language: DANISH
== END 2020-02-18 14:08 | disposition home or self-care (01) ==
LOC: ED 10:43
DX: R10.9 Unspecified abdominal pain (principal); R11.0 Nausea; Z79.899 Other long term (current) drug therapy
CPT/HCPCS: 81001; 81025; 99283; Q0162

== ENCOUNTER 2021-07-06 10:25 | Emergency (ER) | payer SELFPAY ==
[2021-07-06] MEDS ORDERED: SODIUM CHLORIDE 0.9% 1000 ML 1,000 ML IV ONE (11:18)
[2021-07-06] MEDS ORDERED: ONDANSETRON 4 MG/2 ML INJ IV ONE (11:18)
[2021-07-06] MEDS ORDERED: ACETAMINOPHEN W/CODEINE 300-30 MG TAB PO ONE (11:20)
--- NOTE | 2021-07-06 11:21 | Emergency Department Report ---
- General Chief Complaint: Upper Respiratory Infection Stated Complaint: COUGHING/OPAL/CHEST PAIN Time Seen by Provider: 07/06/21 11:12 Source: patient Mode of arrival: Ambulatory Limitations: No Limitations - History of Present Illness Initial Comments: Patient is a 30-year-old female presents emergency room complaints of "not feeling well" for one week. She has associated cough with mucus production, shortness of breath, chest soreness, generalized body aches, fever, diarrhea. She states that she had one episode of vomiting yesterday and one episode of vomiting today. She has not been vaccinated for COVID-19. She has not been tested for COVID-19 in the last week. Patient denies any past medical history. No allergies to medications. She states that she is a non-smoker. - Related Data Previous Rx's Medication Instructions Recorded Last Taken Type DOXYCYCLINE Hyclate [Vibramycin 100 mg PO Q12HR #14 capsule 10/24/17 Unknown Rx CAP] Ibuprofen [Motrin] 800 mg PO Q8HR PRN #30 tablet 10/24/17 Unknown Rx Methylergonovine [Methergine] 0.2 mg PO Q8HR #6 tablet 10/24/17 Unknown Rx Glycerin/Propylene Glycol 1 drop OP Q6H PRN #1 drops 12/07/17 Unknown Rx [Artificial Tears Drops] Tobramycin 0.3% [Tobrex] 1 drop OS Q4H #1 bottle 12/07/17 Unknown Rx Amoxicillin [Amoxicillin TAB] 875 mg PO BID 10 Days #20 tablet 12/16/17 Unknown Rx Ibuprofen [Motrin 600 MG tab] 600 mg PO Q8H PRN #25 tablet 01/15/18 Unknown Rx Hyoscyamine Subl [Levsin Sl 0.125 0.125 mg SL Q6HR PRN #7 tab 02/18/20 Unknown Rx TAB] Mag Hydrox/Aluminum Hyd/Simeth 10 ml PO Q8HR #1 bottle 02/18/20 Unknown Rx [Mylanta Maximum Strength Liq] Ondansetron [Zofran Odt] 4 mg PO Q8HR PRN #7 tab.rapdis 02/18/20 Unknown Rx Azithromycin [Zithromax TAB] 250 mg PO QDAY 5 Days #6 tablet 07/06/21 Unknown Rx Benzonatate [Tessalon Perles] 100 mg PO Q8HR PRN #12 cap 07/06/21 Unknown Rx Dexamethasone 6 mg PO DAILY #7 tab 07/06/21 Unknown Rx Allergies Allergy/AdvReac Type Severity Reaction Status Date / Time No Known Allergies Allergy Verified 02/18/20 10:53 ED Review of Systems ROS: Stated complaint: COUGHING/OPAL/CHEST PAIN Other details as noted in HPI Comment: All other systems reviewed and negative ED Past Medical Hx - Past Medical History Hx Hypertension: No Hx Congestive Heart Failure: No Hx Diabetes: No Hx Deep Vein Thrombosis: No Hx Renal Disease: No Hx Sickle Cell Disease: No Hx Seizures: No Hx Asthma: No Hx COPD: No Hx HIV: No Additional medical history: Anemic - Surgical History Additional Surgical History: D&C 2017 - Social History Smoking Status: Never Smoker Substance Use Type: None - Medications Home Medications: Home Medications Medication Instructions Recorded Confirmed Last Taken Type DOXYCYCLINE Hyclate [Vibramycin 100 mg PO Q12HR #14 capsule 10/24/17 Unknown Rx CAP] Ibuprofen [Motrin] 800 mg PO Q8HR PRN #30 tablet 10/24/17 Unknown Rx Methylergonovine [Methergine] 0.2 mg PO Q8HR #6 tablet 10/24/17 Unknown Rx Glycerin/Propylene Glycol 1 drop OP Q6H PRN #1 drops 12/07/17 Unknown Rx [Artificial Tears Drops] Tobramycin 0.3% [Tobrex] 1 drop OS Q4H #1 bottle 12/07/17 Unknown Rx Amoxicillin [Amoxicillin TAB] 875 mg PO BID 10 Days #20 tablet 12/16/17 Unknown Rx Ibuprofen [Motrin 600 MG tab] 600 mg PO Q8H PRN #25 tablet 01/15/18 Unknown Rx Hyoscyamine Subl [Levsin Sl 0.125 0.125 mg SL Q6HR PRN #7 tab 02/18/20 Unknown Rx TAB] Mag Hydrox/Aluminum Hyd/Simeth 10 ml PO Q8HR #1 bottle 02/18/20 Unknown Rx [Mylanta Maximum Strength Liq] Ondansetron [Zofran Odt] 4 mg PO Q8HR PRN #7 tab.rapdis 02/18/20 Unknown Rx Azithromycin [Zithromax TAB] 250 mg PO QDAY 5 Days #6 tablet 07/06/21 Unknown Rx Benzonatate [Tessalon Perles] 100 mg PO Q8HR PRN #12 cap 07/06/21 Unknown Rx Dexamethasone 6 mg PO DAILY #7 tab 07/06/21 Unknown Rx ED Physical Exam - General Limitations: No Limitations General appearance: alert, in no apparent distress - Head Head exam: Present: atraumatic, normocephalic - Eye Eye exam: Present: normal appearance - ENT ENT exam: Present: mucous membranes moist - Respiratory Respiratory exam: Present: normal lung sounds bilaterally. Absent: respiratory distress, wheezes, rales, rhonchi, stridor, chest wall tenderness, accessory muscle use, decreased breath sounds, prolonged expiratory - Cardiovascular Cardiovascular Exam: Present: regular rate, normal rhythm, normal heart sounds. Absent: systolic murmur, diastolic murmur, rubs, gallop - Neurological Exam Neurological exam: Present: alert, oriented X3 - Psychiatric Psychiatric exam: Present: normal affect, normal mood - Skin Skin exam: Present: warm, dry, intact ED Course Vital Signs 07/06/21 07/06/21 07/06/21 11:06 11:57 12:01 Temperature 99.7 F H 101.0 F H Pulse Rate 89 100 H Respiratory 18 14 14 Rate Blood Pressure 124/102 123/86 [Left] O2 Sat by Pulse 100 98 Oximetry 07/06/21 07/06/21 13:17 13:48 Temperature 99.7 F H Pulse Rate 93 H 102 H Respiratory 20 16 Rate Blood Pressure 133/76 125/71 [Left] O2 Sat by Pulse 98 97 Oximetry ED Medical Decision Making - Lab Data Result diagrams: 07/06/21 11:57 07/06/21 11:57 Lab Results 07/06/21 07/06/21 Range/Units 11:57 11:57 WBC 3.9 L (4.5-11.0) K/mm3 RBC 4.35 (3.65-5.03) M/mm3 Hgb 13.9 (10.1-14.3) gm/dl Hct 42.8 (30.3-42.9) % MCV 98 H (79-97) fl MCH 32 (28-32) pg MCHC 32 (30-34) % RDW 13.0 L (13.2-15.2) % Plt Count 171 (140-440) K/mm3 Lymph % (Auto) 35.1 H (13.4-35.0) % [place] % (Auto) 10.1 H (0.0-7.3) % Eos % (Auto) 0.0 (0.0-4.3) % Baso % (Auto) 1.0 (0.0-1.8) % Lymph # (Auto) 1.4 (1.2-5.4) K/mm3 [place] # (Auto) 0.4 (0.0-0.8) K/mm3 Eos # (Auto) 0.0 (0.0-0.4) K/mm3 Baso # (Auto) 0.0 (0.0-0.1) K/mm3 Seg Neutrophils % 53.8 (40.0-70.0) % Seg Neutrophils # 2.1 (1.8-7.7) K/mm3 Sodium 141 (137-145) mmol/L Potassium 5.5 H (3.6-5.0) mmol/L Chloride 103.8 (98-107) mmol/L Carbon Dioxide 24 (22-30) mmol/L Anion Gap 19 mmol/L BUN 9 (7-17) mg/dL Creatinine 1.1 (0.6-1.2) mg/dL Estimated GFR > 60 ml/min BUN/Creatinine Ratio 8 % Glucose 101 H (65-100) mg/dL Calcium 8.9 (8.4-10.2) mg/dL Total Bilirubin 0.60 (0.1-1.2) mg/dL AST 32 (5-40) units/L ALT 19 (7-56) units/L Alkaline Phosphatase 51 (35-129) units/L Total Protein 7.1 (6.3-8.2) g/dL Albumin 4.2 (3.9-5) g/dL Albumin/Globulin Ratio 1.4 % Vital Signs 07/06/21 07/06/21 07/06/21 11:06 11:57 12:01 Temperature 99.7 F H 101.0 F H Pulse Rate 89 100 H Respiratory 18 14 14 Rate Blood Pressure 124/102 123/86 [Left] O2 Sat by Pulse 100 98 Oximetry 07/06/21 07/06/21 13:17 13:48 Temperature 99.7 F H Pulse Rate 93 H 102 H Respiratory 20 16 Rate Blood Pressure 133/76 125/71 [Left] O2 Sat by Pulse 98 97 Oximetry - Radiology Data Radiology results: report reviewed Ordering Physician: DEJAN KUMAR Date of Service: 07/06/21 Procedure(s): XR chest routine 2V Accession Number(s): [id number] cc: DEJAN KUMAR Fluoro Time In Minutes: XR chest routine 2V INDICATION / CLINICAL INFORMATION: cough, sob COMPARISON: None available. FINDINGS: SUPPORT DEVICES: None. HEART / MEDIASTINUM: No significant abnormality. LUNGS / PLEURA: Low lung volumes. Patchy bilateral airspace disease. Costophrenic sulci are sharp. No pneumothorax. ADDITIONAL FINDINGS: No significant additional findings. IMPRESSION: 1. Patchy airspace disease consistent with pneumonia. Signer Name: Dex Duran MD Signed: 07/06/2021 11:44 AM Workstation Name: [id number] Transcribed By: CS Dictated By: Dex Duran MD Electronically Authenticated By: Dex Duran MD Signed Date/Time: 07/06/21 1144 DD/ 1144 TD/TT: - Medical Decision Making Patient is a 30-year-old female presents emergency room complaints of "not feeling well" for one week. She has associated cough with mucus production, shortness of breath, chest soreness, generalized body aches, fever, diarrhea. She states that she had one episode of vomiting yesterday and one episode of vomiting today. She has not been vaccinated for COVID-19. She has not been tested for COVID-19 in the last week. Patient denies any past medical history. No allergies to medications. She states that she is a non-smoker. Vitals with fever, otherwise stable. Breath sounds are clear bilaterally, no wheezing, no rales, no rhonchi. Labs with mild hyperkalemia at 5.5, given 1 L of IV fluids. Chest x-ray 1. Patchy airspace disease consistent with pneumonia. This could represent COVID-19 pneumonia, patient is unvaccinated. Discussed all findings with patient. Patient ambulated in the emergency department was able to maintain oxygen saturation of 96% or greater on room air. She has no hypoxia. Discussed supportive care and symptomatic treatment with patient. Patient given prescription for medications. Discussed the importance of outpatient follow-up and strict return precautions. Advised patient please take medication as pre scribed. Increase your fluid intake. Follow-up with your primary care doctor for reexamination. Return to emergency room immediately for any new or worsening symptoms. Recommend outpatient COVID-19 testing and if positive please self quarantine for 5 days from onset of symptoms followed by 5 days of strict mask wearing according to the CDC. Critical care attestation.: If time is entered above; I have spent that time in minutes in the direct care of this critically ill patient, excluding procedure time. ED Disposition Clinical Impression: Opacities of both lungs present on chest x-ray, Suspected COVID-19 virus infection Disposition: HOME / SELF CARE / HOMELESS Is pt being admited?: No Does the pt Need Aspirin: No Condition: Stable Instructions: COVID-19, Community-Acquired Pneumonia, Adult Additional Instructions: please take medication as prescribed. Increase your fluid intake. Follow-up with your primary care doctor for reexamination. Return to emergency room immediately for any new or worsening symptoms. Recommend outpatient COVID-19 testing and if positive please self quarantine for 5 days from onset of symptoms followed by 5 days of strict mask wearing according to the CDC. Prescriptions: Dexamethasone 6 mg PO DAILY #7 tab Benzonatate [Tessalon Perles] 100 mg PO Q8HR PRN #12 cap PRN Reason: cough Azithromycin [Zithromax TAB] 250 mg PO QDAY 5 Days #6 tablet Referrals: MONSE TALLEY MD [Primary Care Provider] - 3-5 Days CHELSEA BARRERA MD [Staff Physician] - 3-5 Days [facility] [Provider Group] - 3-5 Days Time of Disposition: 13:39 Print Language: DOMINICAN
--- NOTE | 2021-07-06 11:51 | XRay Report ---
XR chest routine 2V INDICATION / CLINICAL INFORMATION: cough, sob COMPARISON: None available. FINDINGS: SUPPORT DEVICES: None. HEART / MEDIASTINUM: No significant abnormality. LUNGS / PLEURA: Low lung volumes. Patchy bilateral airspace disease. Costophrenic sulci are sharp. No pneumothorax. ADDITIONAL FINDINGS: No significant additional findings. IMPRESSION: 1. Patchy airspace disease consistent with pneumonia. Signer Name: Dex Duran MD Signed: 07/06/2021 11:44 AM Workstation Name: [id number]
[2021-07-06 12:58] LABS: Alanine Aminotransferase 19 units/L (7-56); Albumin 4.2 g/dL (3.9-5); BUN/Creatinine Ratio 8; Blood Urea Nitrogen 9 mg/dL (7-17); Calcium 8.9 mg/dL (8.4-10.2); Hemolysis Index 13
[2021-07-06 13:28] LABS: Hematocrit 42.8 % (30.3-42.9); Hemoglobin 13.9 gm/dl (10.1-14.3); Lymphocytes # (Auto) 1.4 K/mm3 (1.2-5.4); Lymphocytes % (Auto) 35.1 % (13.4-35.0); Mean Corpuscular HGB Conc 32 % (30-34); Mean Corpuscular Volume 98 fl (79-97); Monocytes # (Auto) 0.4 K/mm3 (0.0-0.8); Monocytes % (Auto) 10.1 % (0.0-7.3); Platelet Count 171 K/mm3 (140-440)
[2021-07-06 13:29] LABS: Red Blood Count 4.35 M/mm3 (3.65-5.03)
[2021-07-06 13:50] VITALS: BP 125/71
== END 2021-07-06 14:15 | disposition home or self-care (01) ==
LOC: ED 10:25
DX: R05.9 Cough, unspecified (principal); R06.02 Shortness of breath; R91.8 Other nonspecific abnormal finding of lung field; Z20.822 Contact with and (suspected) exposure to COVID-19; Z79.899 Other long term (current) drug therapy
CPT/HCPCS: 36415; 71046; 80053; 85025; 96361; 96374; 99284; J2405; J7030; Q0162